=== PATIENT | female | born 1995 | race Caucasian/White ===

== ENCOUNTER 2021-08-19 23:10 | Inpatient (IN) | payer OTHER, SELFPAY ==
[2021-08-19 22:49] VITALS: BMI 31.4
[2021-08-19] MEDS: Lactated Ringers 1,000 ML 50 ML IV (23:05)
[2021-08-19 23:24] LABS: Absolute Lymphocyte Count 1.52 X10^3/uL (0.83-4.51); Absolute Neutrophil Count 9.6 X10^3/uL (2.0-7.7); Basophil# 0.04 X10^3/uL; Basophil% 0.3 % (0-1); Eosinophil# 0.13 X10^3/uL; Hematocrit 35.8 % (37-47); Hemoglobin 12.2 g/dL (12.0-15.0); Lymphocyte # 1.52 X10^3/ul (0.83-4.51); Lymphocyte % 12.2 % (19-41); Mean Corp Hgb Conc 34.1 g/dL (32-36); Mean Corpuscular Volume 90.9 fL (81-99); Mean Platelet Vol. 9.9 fl (6.2-12.0); Monocyte# 1.15 X10^3/uL; Monocyte% 9.2 % (0-10); NRBC Flagged by Analyzer 0 % (0-5); Neutrophil # 9.58 X10^3/uL (2.7-7.7); Neutrophil % 76.9 % (47-70); Platelet Count 247 K/mm3 (150-450); RBC Distribution Width CV 13.7 % (11.6-14.6); RBC Distribution Width SD 46.1 fl (35.1-43.9); Red Blood Count 3.94 M/mm3 (4.2-5.4); White Blood Count 12.5 K/mm3 (4.4-11.0)
[2021-08-19 23:37] VITALS: RESP 18; O2SAT 99
[2021-08-19] MEDS: Magnesium Sulfate 4gm/100mL 4 GM/100 ML IV.SOLN. IV (23:37)
[2021-08-19] MEDS: Betamethasone/Betamethasone 30 MG/5 ML Vial 12 MG IM (23:54)
[2021-08-19 23:55] VITALS: RESP 16; O2SAT 99
[2021-08-19 23:56] VITALS: PULSE 109; O2SAT 95
[2021-08-20] VITALS (24 sets, daily range): BP systolic 98–113; BP diastolic 51–68; PULSE 84–115; RESP 15–18; TEMP 36.3–36.7; O2SAT 87–100
[2021-08-20] MEDS: Magnesium Sulfate 4gm/100mL 2 GM/50 ML IV.SOLN. IV
--- NOTE | 2021-08-20 00:04 | HP.PCM_ITS ---
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 Subsequently found to be dilated to complete. care has been uneventful with first delivering at the due date. Bedside ultrasound upon initial presentation showed the baby to be cephalic and BPD consistent with 26 weeks gestation. Subsequent ultrasound in the room showed a femur length also consistent with 26 weeks gestation with fundal placenta and normal amount of amniotic fluid. Medications: None except for vitamins Review of systems: No pertinent abnormal findings. Obstetrical history: Delivered a viable female at approximately 40 weeks gestation about 3 years ago without complication. No postoperative bleeding or issues reported. Social history: Denies smoking or drug use or alcohol use. Physical exam: Vitals: Afebrile, vital signs stable General: 26-year-old patient in no apparent distress except for labor. Some moderate vaginal bleeding noted HEENT: Normocephalic without thyromegaly Abdomen appropriate for gestational age at 26 weeks gestation. Reactive heart tones noted category 1 tracing. Contractions every 2 to 5 minutes noted on the monitor. Pelvic: Cervix is completely dilated with mild amount of bleeding noted in the vagina with bulging bag of water present. Head palpated through bag of water. Impression/plan: 26+ week intrauterine with advanced cervical dilation and impending delivery. Started on penicillin, Celestone, and magnesium sulfate immediately. Pediatrics notified and blasting contract man from [facility] on his way. transport unit from [facility] will be here approximately in 1 to 2 hours. Probable spontaneous vaginal delivery within the next 1 to 2 hours.
[2021-08-20] MEDS: Ondansetron 4 MG/2 ML Vial IV (00:13)
[2021-08-20] MEDS: Magnesium Sulfate 20 GM/500 ML BAG IV (00:14)
[2021-08-20] MEDS: Oxytocin 30 units/NS 500 ml 30 UNITS/500 ML IV.SOLN 334 UNITS IV (00:41)
[2021-08-20] MEDS: Methylergonovine 0.2 MG/ML Ampul IM (00:47)
--- NOTE | 2021-08-20 01:05 | OP.PCM_ITS ---
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 Indicates her first bleeding was approximately 5 to 6 days ago. Operative Information Date of Procedure: 08/20/21 Pre-Operative Diagnosis: 26+ week IUP With Labor Post-Operative Diagnosis: 26+ week IUP With Labor; Placental Abruption Surgery / Procedure Performed: Spontaneous Vaginal Delivery Type of Anesthesia: None Estimated Blood Loss: 350 cc Fluids Replaced: Crystalloid Findings Description of Procedure: Spontaneous vaginal delivery of a viable male with Apgars to be determined. No episiotomy or lacerations. Three-vessel placenta with very light stained meconium fluid and a 5 to 10% placental edge abruption. Sponges okay. Director Clinical Operations, general farmer, and team present for delivery. Delivery physician: Isael Rehman MD. Presentation: Vertex Amniotic Membrane Rupture Type: Spontaneous Amniotic Fluid Description: Lightly stained meconium Placental Delivery Description: Spontaneous Placenta Disposition: Sent with transport team Cord Vessel Description: 3 Vessels Cord Entanglement: Around neck x 2, loose Cord Gases: ABG and VBG A Gender: Male Post Vaginal Delivery Medications Given After Delivery: IV Pitocin and IM Methergin Episiotomy Description: None Laceration: None Complication Complications: None
[2021-08-20 01:31] LABS: HIV - WCH Non-Reactive (Nonreactive); Hepatitis B Surface Antigen Non-Reactive (Nonreactive); Hepatitis C Antibody Non-Reactive (Nonreactive)
--- NOTE | 2021-08-20 08:30 | NURSING ---
Patient given instructions and set up with pump. Small drops collected, labeled, and stored in unit refrigerator. Patient encouraged to pump every 3-4 hours.
[2021-08-20 08:49] LABS: Rubella IgG Reactive (Nonreactive); Syphilis Antibodies Non-reactive
--- NOTE | 2021-08-20 09:35 | PN.OBGYN_ITS ---
Subjective Subjective Patient without complaints. Minimal vaginal bleeding reported. Wants discharge so [facility] can [facility] . 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 Objective Data Objective Data Vital Signs: Vital Signs Temp Pulse Resp BP Pulse Ox 97.3 F L 84 15 101/55 L 97 08/20/21 07:45 08/20/21 07:45 08/20/21 07:45 08/20/21 07:45 08/20/21 03:15 Oxygen Delivery Method Room Air Weight: 177 lb 3.2 oz Body Mass Index (BMI) 31.4 Intake & Output: Intake and Output for Last 24 Hours 08/18/21 08/19/21 08/20/21 23:59 23:59 23:59 Intake Total 100 / 100 755.84 / 755.84 Balance 100 / 100 755.84 / 755.84 Lab / Micro Data Result Diagrams: 08/19/21 21:05 Labs: Laboratory Results - last 24 hr 08/19/21 21:05: WBC 12.5 H, RBC 3.94 L, Hgb 12.2, Hct 35.8 L, MCV 90.9, MCH 31.0, MCHC 34.1, RDW Std Deviation 46.1 H, RDW Coeff of John 13.7, Plt Count 247, MPV 9.9, Immature Gran % (Auto) 0.400, Neut % (Auto) 76.9 H, Lymph % (Auto) 12.2 L, [place] % (Auto) 9.2, Eos % (Auto) 1.0, Baso % (Auto) 0.3, Absolute Neuts (auto) 9.6 H, Absolute Lymphs (auto) 1.52, Nucleated RBC % 0 08/19/21 21:05: Blood Type AB POSITIVE, Antibody Screen NEGATIVE 08/19/21 21:05: Syphilis Total Ab Non-reactive, Rubella IgG Antibody Reactive 08/19/21 21:05: Hep Bs Antigen Non-Reactive, Hepatitis C Antibody Non-Reactive, HIV 1&2 Antibody Non-Reactive Micro: Microbiology 08/20/21 03:30 Nasal Secretion SARS-CoV-2 Antigen (Rapid) - Final Assessment & Plan (1) delivery, delivered: PLAN: Doing well day 0 status post spontaneous vaginal delivery of 26+ week probably due to small placental abruption. Will discharge to home with routine instructions.
--- NOTE | 2021-08-20 09:37 | PCM.DC ---
Discharge Instructions Activity May resume sexual activity in: 4-6 weeks Additional Activity Instructions:: Nothing in the vagina for 4-6 weeks. You may return to work/school in 6 weeks. Follow Up Care Please Follow Up With: Isael Rehman MD When: Call [phone] to make an appointment with your doctor in 6weeks. If you had elevated blood pressure or 4th degree laceration, you will need to be seen in 2 weeks. Test Results: Test results from this visit will be discussed in further detail at your follow-up appointment, if applicable. Discharge Plan Admission Admit Date/Time: 08/19/21 23:10 Primary Reason for Your Visit: Vaginal Delivery Attending Provider: Isael Rehman Primary Care Provider: Isael Da Silva Discharge Orders/Prescriptions Referrals / Follow Up: Isael Da Silva MD [Primary Care Provider] - Disposition Disposition (needs filled in before D/C Order can be placed): Home, Self Care
[2021-08-20 10:16] LABS: Chlamydia Trachomatis by PCR Negative (Negative); Neisserai gonorrhoeae by PCR Negative (Negative); Probe Check PASS; Sample Adequacy Control PASS; Specimen Processing Control PASS
== END 2021-08-20 11:29 | disposition home or self-care (01) | DRG 805 ==
LOC: WPOUT 23:13 → WP 23:13
PROVIDERS: Admitting Provider Obstetrics & Gynecology; PCP Family Medicine; Visit Provider Obstetrics & Gynecology
DX: O45.92 Premature separation of placenta, unspecified, second trimester (principal); Z37.0 Single live birth; O60.12X0 Preterm labor second trimester with preterm delivery second trimester, not applicable or unspecified; Z3A.26 26 weeks gestation of pregnancy; O77.0 Labor and delivery complicated by meconium in amniotic fluid; O69.81X0 Labor and delivery complicated by cord around neck, without compression, not applicable or unspecified
CPT/HCPCS: 59050; 85025; 86703; 86762; 86780; 86803; 86850; 86900; 86901; 87340; 87426; 87491; 87591; 99218; J7120; G0378; J0702; J2405